=== PATIENT | female | born 1945 | race Caucasian/White ===

== ENCOUNTER → 2017-02-17 | Outpatient (CLI) | payer BC ==
[~2017-02-17] MED LIST: CALC-310 PO; CHOL100010 PO; CHOL2000 PO; CLTP PO; DENO60SO IM; FEXO1TAB49 PO; LEVO100T PO; MULT-190 PO; MULT-506 PO; MULT60CA PO; POLYSOL4 OPB; PRDFOPS; VGMOPS
--- NOTE | 2017-02-17 16:37 | MAMMOGRAPHY REPORT ---
BILATERAL DIGITAL SCREENING MAMMOGRAM WITH CAD: 02/17/2017 CLINICAL HISTORY: Routine screening examination. TECHNIQUE: Bilateral CC and MLO views were obtained. Current study was also evaluated with a Comput er Aided Detection (CAD) system. COMPARISON: Comparison is made to exams dated: 02/14/2016 mammogram, 02/13/2015 mammogram, 02/09/2013 mammogram, and 02/02/2010 mammogram - [facility]. BREAST COMPOSITION: The tissue of both breasts is extremely dense, which lowers the sensitivity of mammography. FINDINGS: There is a stable metallic biopsy marker in the 12:00 anterior left breast. Scattered sta ble benign-appearing calcifications bilaterally. Minimal vascular calcification in the breasts. No new suspicious mass, architectural distortion or cluster of microcalcifications is seen. IMPRESSION: ACR BI-RADS CATEGORY 1: NEGATIVE There is no mammographic evidence of malignancy. A 1 year screening mammogram is recommended. The p atient will receive written notification of the results. Approximately 10% of breast cancers are not detected with mammography. A negative mammographic repor t should not delay biopsy if a clinically suggestive mass is present. Dilcia Dalton M.D. ay/:02/17/2017 14:12:47 Magazine Filler: Fara ELIZABETH)(Miguel), [facility] letter sent: Normal 1/2 BI-RADS Code: ACR BI-RADS Category 1: Negative
== END | disposition home or self-care (01) ==
LOC: C.MAMM 10:51
PROVIDERS: ATTEND Family Medicine
DX: Z12.31 Encounter for screening mammogram for malignant neoplasm of breast (principal)

== ENCOUNTER → 2017-03-31 | Day surgery (SDC) | payer BC ==
[2017-03-14 11:41] VITALS: Ht 162.6 cm; Wt 54.5 kg
[~2017-03-31] VITALS: Ht 162.6 cm; Wt 54.5 kg
[~2017-03-31] MED LIST changes: +500ML BSS 0.3ML EPI 1:1000PF IRRIG ONE; +ACETAMINOPHEN 325 MG TAB PO PRN; +AMVISC PLUS 0.8ML SYRINGE INT OCU ONE; +BRIMONIDINE TART 0.2% OP SOLN PER DROP CHARGE ONE; +BSS FLUSH ONE; -CHOL100010 PO; -CLTP PO; +ENDOCOAT 0.85ML SYRINGE INT OCU ONE; +EpINEphrine INJ 1MG/ML AMP 1 MG/ML AMP ONE; -FEXO1TAB49 PO; +KETOROLAC 0.5% OP SOLN PER DROP CHARGE OPR SCH; +LACTATED RINGER'S 1000ML 500 ML IV SCH; +LIDOCAINE 4% OP SOLN DROP CHARGE ONE; +LIDOCAINE 4% OP SOLN DROP CHARGE OPR SCH; +LIDOCAINE HCL 1% MPF 2 ML VIAL ONE; +MIDAZOLAM HCL 1 MG/ML 2ML VIAL ONE; +MOXIFLOXACIN OPH SOLN PER DROP CHARGE ONE; -MULT-190 PO; +POVIDONE-IODINE OP SOLN 30 ML BTL ONE; +PROPARACAINE 0.5% OP SOLN PER DROP CHARGE OPR SCH; +TOBRAMYCIN/DEXAMETHASONE OPH OINT PER APPLN CHARGE ONE
--- NOTE | 2017-03-31 09:02 | History & Physical Bridge - SC ---
H&P Re-Evaluation Bridge Note: I have examined the patient, reviewed the History & Physical and in the interval since the performance of the History & Physical I have noted the following changes of clinical significance: No changes noted
[2017-03-31] MEDS: PHENYLEPHRINE HCL 2.5% OP SOLN PER DROP CHARGE OPR SCH ×2 (09:04→09:09)
[2017-03-31] MEDS: TROPICAMIDE 1% OP SOLN PER DROP CHARGE OPR SCH ×2 (09:05→09:10)
[2017-03-31] MEDS: CYCLOPENTOLATE HCL 1% OP SOLN PER DROP CHARGE OPR SCH ×2 (09:06→09:11)
[2017-03-31] MEDS: MOXIFLOXACIN OPH SOLN PER DROP CHARGE OPR SCH ×2 (09:08→09:23)
--- NOTE | 2017-03-31 09:59 | [facility] Post Operative Brief Note ---
Immediate Operative Summary Operative Date March 31, 2017. Pre-Operative Diagnosis Right Eye Cataract Post-Operative Diagnosis Same Procedure(s) Performed Right Cataract Phacoemulsification With Intraocular Lens Implant Surgeon Dr Frazier Regulatory Consultant Surgeon(s) None Estimated Blood Loss 0ml Findings cataract right eye Specimens None Complication(s) None Disposition Recovery Room / PACU
--- NOTE | 2017-03-31 09:59 | Discharge Instructions-SurgCtr ---
Discharge Instructions Date of Service March 31, 2017. Visit Reason for Visit: Cataract Right Eye Discharge Discharge Diagnosis / Problem: cataract right eye Discharge Goals Goal(s): Improve function Activity Recommendations Activity Limitations: per Instructions/Follow-up section Lifting Limitations: no more than 5 pounds Anesthesia . Post Anesthesia Instructions: If you have had General Anesthesia or IV Sedation: * Do not drive today. * Resume driving when surgeon permits. * Do not make important decisions or sign legal documents today. * Call surgeon for: 1. Temperature elevations greater than 101 degrees F. 2. Uncontrollable pain. 3. Excessive bleeding. 4. Persistent nausea and vomiting. 5. Medication intolerance (nausea, vomiting or rash). * For nausea and vomiting use only clear liquids such as: tea, soda, bouillon until nausea subsides, then gradually increase diet as tolerated. * If you have any concerns or questions, call your surgeon's office. If physician is unavailable and it is an emergency, call 911 or go to the nearest emergency room. . Instructions / Follow-Up Instructions / Follow-Up ACTIVITY RECOMMENDATIONS: * Light activities * You may walk outside, read, watch television. * Mild irritation and blurred vision are common for the first few days, redness around the white part of the eye is common. MEDICATIONS: Resume previous medications unless instructed otherwise by your surgeon. Eye drops (today and tomorrow): Vigamox - one drop in operative eye every 2 hours while awake Prednisolone 1% - one drop in operative eye every 2 hours while awake SPECIAL CARE INSTRUCTIONS: * If any problems or concerns, please call Dr. Frazier's office at . * Keep plastic shield taped over eye to sleep at night. * Keep plastic shield taped over eye except to administer eye drops. * Keep plastic shield on until office visit the following day. FOLLOW UP VISIT: Follow-up with Dr. Frazier in the [place] office as scheduled. If not already scheduled, please call the office at . Diet Recommendations Home Diet: resume previous diet Procedures Procedures Performed: Right Cataract Phacoemulsification With Intraocular Lens Implant Pending Studies Studies pending at discharge: no Medical Emergencies . Who to Call and When: Medical Emergencies: If at any time you feel your situation is an emergency, please call 911 immediately. . Non-Emergent Contact Non-Emergency issues call your: Color Maker Dyer . . "Provider Documentation" section prepared by Roman Frazier. .
[2017-03-31 10:00] VITALS: TEMP 36.7
--- NOTE | 2017-03-31 10:21 | Anesthesia Progress Nt - [facility] ---
Anesthesia Post Op Note Date & Time March 31, 2017 at 10:20 Vital Signs Pain Intensity: 0 Vital Signs Past 12 Hours Date Time Temp Pulse Resp B/P Pulse Ox O2 Delivery O2 Flow Rate FiO2 03/31/17 10:00 36.7 49 16 123/68 100 Room Air 03/31/17 08:54 36.5 57 16 158/65 100 Room Air Notes Mental Status: alert / awake / arousable, participated in evaluation Pt Amnestic to Procedure: No (recall as expected) Nausea / Vomiting: adequately controlled Pain: adequately controlled Airway Patency, RR, SpO2: stable & adequate BP & HR: stable & adequate Hydration State: stable & adequate Anesthetic Complications: no major complications apparent Pt doing well.
[2017-03-31 10:23] VITALS: BP 133/66; PULSE 52; O2SAT 99
--- NOTE | 2017-03-31 10:27 | OPERATIVE REPORT ---
DATE OF OPERATION: 03/31/2017 PREOPERATIVE DIAGNOSIS: Cataract, right eye. POSTOPERATIVE DIAGNOSIS: Cataract, right eye. PROCEDURE: Phacoemulsification cataract extraction with intraocular lens placement, right eye. SURGEON: Dr. Frazier. COMPLICATIONS: None. ESTIMATED BLOOD LOSS: None. ANESTHESIA: Topical with sedation. OPERATION AND FINDINGS: After informed consent was obtained in the holding area the patient was wheeled back to the Operating Room where cardiac monitoring leads and oxygen by nasal cannula was administered by Anesthesia. Gentle IV sedation was given, and the patient's right eye was prepped and draped in usual sterile fashion. A wire lid speculum was placed into the right eye and the operating microscope was swung into position. Using 0.12 forceps and a Supersharp blade a paracentesis port was made 3 o'clock hours away from the 9 o'clock position of patient's right eye. 1% non-preserved Lidocaine was then injected into the anterior chamber for anesthesia. A 2.2 mm keratotome blade was then used to make a shelved clear corneal incision at the 9 o'clock position of her right eye. Amvisc was injected into the anterior chamber and a cystotome and Utrata forceps were used to perform a curvilinear capsulorrhexis. BSS on a hydrodissection cannula was used to hydrodissect the lens nucleus away from the capsular bag. The phacoemulsification handpiece was then used in a stop and chop fashion to remove the lens nucleus. The irrigation and aspiration handpiece was then used to remove the residual cortical material. Amvisc was injected into the capsular bag and anterior chamber and a Bausch \T\ Lomb MX60 22.5 Diopter intraocular lens was injected into the capsular bag. Irrigation and aspiration handpiece was used to remove the residual viscoelastic material. The wounds were hydrated and noted to be watertight. The wire lid speculum was removed from the eye. Vigamox, Brimonidine, and TobraDex ointment were placed on the eye and it was shielded. It should be noted that EndoCoat was used during the case to protect the cornea endothelium. DISPOSITION: The patient tolerated the procedure well and was wheeled to the post anesthesia care unit in stable condition. I attest to the content of the Intraoperative Record and any orders documented therein. Any exceptions are noted below. I attest to the content of the Intraoperative Record and any orders documented therein. Any exceptions are noted below. MTDD
== END | disposition home or self-care (01) ==
LOC: X.SURG 08:18
PROVIDERS: ATTEND Ophthalmology
DX: H25.11 Age-related nuclear cataract, right eye (principal); E89.0 Postprocedural hypothyroidism; Z79.899 Other long term (current) drug therapy

== ENCOUNTER → 2017-06-11 | Outpatient (CLI) | payer BC ==
[~2017-06-11] MED LIST changes: -500ML BSS 0.3ML EPI 1:1000PF IRRIG ONE; -ACETAMINOPHEN 325 MG TAB PO PRN; -AMVISC PLUS 0.8ML SYRINGE INT OCU ONE; -BRIMONIDINE TART 0.2% OP SOLN PER DROP CHARGE ONE; -BSS FLUSH ONE; -ENDOCOAT 0.85ML SYRINGE INT OCU ONE; -EpINEphrine INJ 1MG/ML AMP 1 MG/ML AMP ONE; -KETOROLAC 0.5% OP SOLN PER DROP CHARGE OPR SCH; -LACTATED RINGER'S 1000ML 500 ML IV SCH; -LIDOCAINE 4% OP SOLN DROP CHARGE ONE; -LIDOCAINE 4% OP SOLN DROP CHARGE OPR SCH; -LIDOCAINE HCL 1% MPF 2 ML VIAL ONE; -MIDAZOLAM HCL 1 MG/ML 2ML VIAL ONE; -MOXIFLOXACIN OPH SOLN PER DROP CHARGE ONE; -POVIDONE-IODINE OP SOLN 30 ML BTL ONE; -PROPARACAINE 0.5% OP SOLN PER DROP CHARGE OPR SCH; -TOBRAMYCIN/DEXAMETHASONE OPH OINT PER APPLN CHARGE ONE
[2017-06-11 15:26] LABS: THYROID STIMULATING HORMONE 0.437 uIu/ml (0.300-4.500)
== END | disposition home or self-care (01) ==
LOC: C.LAB 14:05
PROVIDERS: ATTEND Internal Medicine Endocrinology, Diabetes & Metabolism
DX: E89.0 Postprocedural hypothyroidism (principal); M81.0 Age-related osteoporosis without current pathological fracture; E55.9 Vitamin D deficiency, unspecified; Z92.3 Personal history of irradiation

== ENCOUNTER → 2017-12-18 | Outpatient (CLI) | payer BC ==
[2017-12-18 15:03] LABS: BLOOD UREA NITROGEN 22 mg/dl (7-18); CALCIUM 9.4 mg/dl (8.5-10.1); CARBON DIOXIDE 28 mmol/L (21-32); CREATININE 0.64 mg/dl (0.60-1.20); GLUCOSE 91 mg/dl (70-99); POTASSIUM 4.1 mmol/L (3.5-5.1); SODIUM 139 mmol/L (136-145)
== END | disposition home or self-care (01) ==
LOC: C.LAB 13:17
PROVIDERS: ATTEND Internal Medicine Endocrinology, Diabetes & Metabolism
DX: C73 Malignant neoplasm of thyroid gland (principal)

== ENCOUNTER 2018-02-01 10:24 | Emergency (ER) | payer BC ==
[~2018-02-01] VITALS: Ht 162.6 cm; Wt 54.9 kg
[2018-02-01 10:29] VITALS: Ht 162.6 cm; Wt 54.9 kg
[2018-02-01] MEDS ORDERED: ACETAMINOPHEN 500 MG TAB PO STA (10:40)
--- NOTE | 2018-02-01 10:46 | EMERGENCY ROOM VISIT NOTE ---
History Report prepared by Jonelle: Wojciech Luz Under the Supervision of: Dr. Jhonatan Cunningham D.O. First contact with patient: 10:34 Chief Complaint: FLU LIKE SX Stated Complaint: COLD, COUGH, DIZZY, BODY ACHES History of Present Illness The patient is a 72 year old female who presents to the Emergency Room with complaints of worsening flu like symptoms for the past two days. The patient states that she has a sore throat, runny nose, nausea, body aches, and a cough that is brining up phlegm. She is unsure if she has a fever. She denies any chest pain, leg pain, leg swelling, and vomiting. The patient states that she took Tylenol yesterday. The patient has a history of thyroid cancer, a thyroidectomy, and osteoporosis. She denies any history of diabetes or hypertension. She did not get the flu shot this year. Source of History: patient Onset: two days ago Position: other (global) Quality: other (flu like symptoms) Timing: worsening Associated Symptoms: + sorethroat, + cough, + nausea Note: Associated symptoms: runny nose and body aches. Review of Systems See HPI for pertinent positives & negatives. A total of 10 systems reviewed and were otherwise negative. Past Medical & Surgical Medical Problems: (1) Osteoporosis (2) Thyroid cancer Surgical Problems: (1) H/O thyroidectomy Social History Smoking Status: Former Smoker Alcohol Use: none Occupation Status: unemployed Current/Historical Medications Scheduled Calcium Citrate-Vitamin D (Calcium Citrate + D), 1 TAB PO BID Cholecalciferol (Vitamin D3), 2,000 UNITS PO QAM Denosumab (Prolia), 1 DOSE IM [id number] Levothyroxine Sodium (Synthroid), 100 MCG PO QAM Multiple Vitamins W/ Minerals (Preservision Areds 2), 1 CAP PO BID Multivitamin (Multivitamin), 1 TAB PO QAM Polyethylene Glycol-Propylene (Systane), 1 DROPS OPB BID Allergies Coded Allergies: Celecoxib (Verified Allergy, Intermediate, HIVES RASH, 02/01/18) Grass (Verified Allergy, Mild, HAYFEVER SYMPTOMS, 02/01/18) Shellfish (Verified Allergy, Unknown, TESTED POSITIVE FROM ALLERGY TEST, ) Uncoded Allergies: NARCOTICS (Adverse Reaction, Unknown, GI UPSET, 03/14/17) Physical Exam Vital Signs Date Time Temp Pulse Resp B/P (MAP) Pulse Ox O2 Delivery O2 Flow Rate FiO2 02/01/18 11:39 37.8 69 18 124/53 94 Room Air 02/01/18 10:29 37.8 82 18 155/68 97 Room Air Physical Exam GENERAL: Patient is awake, alert, and in no acute distress. Patient is resting comfortably and showing no signs of anxiety EYES: The conjunctivae are clear. The pupils are round and reactive. EARS, NOSE, MOUTH AND THROAT: . Mucous membranes are moist. There is a thin clear rhinorrhea noted bilaterally. NECK: The neck is nontender and supple. RESPIRATORY: Normal respiratory effort is noted there is no evidence of wheezing rhonchi or rales CARDIOVASCULAR: Regular rate and rhythm noted there no murmurs rubs or gallops normal S1 normal S2 GASTROINTESTINAL: The abdomen is soft. Bowel sounds are present in all quadrants. Abdomen is nontender MUSCULOSKELETAL/EXTREMITIES: There is no evidence of gross deformity full range of motion is noted in the hips and shoulders SKIN: There is no obvious evidence of any rash. There are no petechiae, pallor or cyanosis noted. NEUROLOGIC: Patient is awake alert and oriented x3 Medical Decision & Procedures ER Provider Diagnostic Interpretation: Radiology results as stated below per my review and radiologist interpretation: TWO VIEW CHEST CLINICAL HISTORY: Cough. FINDINGS: PA and lateral chest radiographs are correlated with chest CT dated 11/04/2006. The PA view is degraded by patient rotation. The cardiomediastinal silhouette is unremarkable. There is atherosclerotic calcification of the thoracic aorta. Chronic interstitial thickening is similar to previous. No airspace consolidation or pleural effusion is identified. There is no pneumothorax. The skeletal structures are osteopenic. Mild compression deformities are noted in the thoracic spine. There are healed right-sided rib fractures. IMPRESSION: No active disease in the chest Electronically signed by: Juliano Dawson M.D. 02/01/2018 11:27 AM Dictated Date/Time: 02/01/2018 11:25 AM Laboratory Results Test 02/01/18 10:55 Influenza Type A Antigen Neg for Influ A (NEG) Influenza Type B Antigen Neg for Influ B (NEG) Laboratory results per my review. Medications Administered Medications (Trade) Dose Ordered Sig/Cricket Route Start Time Stop Time Status Last Admin Dose Admin Acetaminophen (Tylenol Tab) 1,000 mg NOW STAT PO 02/01/18 10:40 02/01/18 10:41 DC 02/01/18 10:48 1,000 MG ED Course 1034: The patient was evaluated in room C4. A complete history and physical examination were performed. 1040: Tylenol 1000mg PO 1135: Upon reevaluation, the patient is doing well. I discussed the results and treatment plan with her. She verbalized agreement of the treatment plan. She was discharged home. Medical Decision Differential diagnosis: Etiologies such as viral syndrome, otitis, pharyngitis, pneumonia, influenza, meningitis, urinary tract infection, sepsis, bacteremia, as well as others were entertained. Nursing notes reviewed. The patient is a 72-year-old female who presented to the emergency department for an evaluation of flulike symptoms. The patient complains of cough and low- grade fever. She also has rhinorrhea. Overall her condition does appear to be consistent with the flu however her swab was negative. Chest x-ray revealed no acute disease and her exam does not appear to be consistent with bronchitis. I explained to her that this likely represents a viral upper respiratory tract infection as well as possibly the flu. I discussed the limitations of the flu swab with her. She has had symptoms for greater than 48 hours I do not feel there would be any specific treatment for the flu. She was encouraged to continue using [id number] medications and follow-up with her primary care physician as soon as possible. Otherwise I encouraged her to return to the emergency department immediately if symptoms change worsen or the need arises. Medication Reconcilliation Current Medication List: was personally reviewed by me Blood Pressure Screening Patient's blood pressure: Elevated blood pressure Blood pressure disposition: Elevated BP felt to be situational Impression Primary Impression: Upper respiratory tract infection Scribe Attestation The scribe's documentation has been prepared under my direction and personally reviewed by me in its entirety. I confirm that the note above accurately reflects all work, treatment, procedures, and medical decision making performed by me. Departure Information Dispostion Home / Self-Care Referrals Leigh Brito PA-C (PCP) Forms HOME CARE DOCUMENTATION FORM, IMPORTANT VISIT INFORMATION Patient Instructions ED URI Viral, [facility] Additional Instructions Continue using Tylenol as directed for pain and body aches. Drink plenty of clear liquids. Call your family doctor to schedule a follow-up appointment. Return to the emergency department immediately if symptoms change worsen or the need arises. Problem Qualifiers Primary Impression: Upper respiratory tract infection URI type: unspecified URI Qualified Codes: J06.9 - Acute upper respiratory infection, unspecified
[2018-02-01 11:21] LABS: INFLUENZA B ANTIGEN Neg for Influ B (NEG)
--- NOTE | 2018-02-01 11:28 | DIAGNOSTIC IMAGING REPORT ---
TWO VIEW CHEST CLINICAL HISTORY: Cough. FINDINGS: PA and lateral chest radiographs are correlated with chest CT dated 11/04/2006. The PA view is degraded by patient rotation. The cardiomediastinal silhouette is unremarkable. There is atherosclerotic calcification of the thoracic aorta. Chronic interstitial thickening is similar to previous. No airspace consolidation or pleural effusion is identified. There is no pneumothorax. The skeletal structures are osteopenic. Mild compression deformities are noted in the thoracic spine. There are healed right-sided rib fractures. IMPRESSION: No active disease in the chest. Electronically signed by: Juliano Dawson M.D. 02/01/2018 11:27 AM Dictated Date/Time: 02/01/2018 11:25 AM
[2018-02-01 11:39] VITALS: BP 124/53; PULSE 69; TEMP 37.8; O2SAT 94
== END 2018-02-01 11:41 | disposition home or self-care (01) ==
LOC: C.EDB 10:26 → C.EDC 11:41
DX: J06.9 Acute upper respiratory infection, unspecified (principal); Z85.850 Personal history of malignant neoplasm of thyroid; M81.0 Age-related osteoporosis without current pathological fracture; Z87.891 Personal history of nicotine dependence; Z79.899 Other long term (current) drug therapy; Z91.048 Other nonmedicinal substance allergy status; Z91.013 Allergy to seafood; Z88.5 Allergy status to narcotic agent; Z88.8 Allergy status to other drugs, medicaments and biological substances

== ENCOUNTER → 2018-02-18 | Outpatient (CLI) | payer BC ==
[~2018-02-18] MED LIST changes: -PRDFOPS; -VGMOPS
--- NOTE | 2018-02-18 14:12 | DIAGNOSTIC IMAGING REPORT ---
CHEST 2 VIEWS ROUTINE CLINICAL HISTORY: SOB, FATIGUE NONPRODUCTIVE COUGH COMPARISON STUDY: February 01, 2018 FINDINGS: The cardiac and mediastinal contours remain stable. There is no failure. There is no focal pulmonary consolidation. There are no pleural effusions. There are old right-sided rib fractures.[ IMPRESSION: No active disease in the chest. Electronically signed by: Domenic Rosales M.D. 02/18/2018 2:11 PM Dictated Date/Time: 02/18/2018 2:10 PM
== END | disposition home or self-care (01) ==
LOC: C.RAD 13:36
PROVIDERS: ATTEND Physician Assistant
DX: R06.02 Shortness of breath (principal); R53.83 Other fatigue

== ENCOUNTER → 2018-02-24 | Outpatient (CLI) | payer BC | END | disposition home or self-care (01) | LOC: C.MAMM 12:12 | PROVIDERS: ATTEND Internal Medicine Endocrinology, Diabetes & Metabolism | DX: M81.0 Age-related osteoporosis without current pathological fracture (principal); M85.89 Other specified disorders of bone density and structure, multiple sites ==

== ENCOUNTER → 2018-02-24 | Outpatient (CLI) | payer BC ==
--- NOTE | 2018-02-26 07:47 | MAMMOGRAPHY REPORT ---
BILATERAL DIGITAL SCREENING MAMMOGRAM TOMOSYNTHESIS WITH CAD: 02/24/2018 CLINICAL HISTORY: Routine screening. Patient has no complaints. TECHNIQUE: Breast tomosynthesis in addition to standard 2D mammography was performed. Current study was also evaluated with a Computer Aided Detection (CAD) system. COMPARISON: Comparison is made to exams dated: 02/17/2017 mammogram, 02/14/2016 mammogram, 02/13/2015 m ammogram, 02/10/2014 mammogram, 02/09/2013 mammogram, and 02/05/2012 mammogram - [facility]. BREAST COMPOSITION: The tissue of both breasts is extremely dense, which lowers the sensitivity of m ammography. FINDINGS: There is a 7 mm nodular asymmetry and possible architectural distortion in the lateral, mi ddle one third of the right breast, best seen on the CC view. Additional spot compression tomosynthe sis views and possible ultrasound are recommended. There are stable benign rim calcifications in the lateral right breast, and a stable metallic biopsy marker clip in the 12:00 left breast. No other suspicious mass, architectural distortion or cluster o f microcalcifications is seen. IMPRESSION: ACR BI-RADS CATEGORY 0: INCOMPLETE EVALUATION: NEED ADDITIONAL IMAGING EVALUATION The 7 mm nodular asymmetry and possible architectural distortion in the lateral right breast need add itional evaluation. The patient will be called to schedule an appointment. Approximately 10% of breast cancers are not detected with mammography. A negative mammographic report should not delay biopsy if a clinically suggestive mass is present. Dilcia Dalton M.D. ay/:02/24/2018 15:41:16 Clean Up Person: Fara ELIZABETH)(Miguel), [facility] letter sent: Addl Imaging 0 BI-RADS Code: ACR BI-RADS Category 0: Incomplete Evaluation: Need Additional Imaging Evaluation
== END | disposition home or self-care (01) ==
LOC: C.MAMM 12:11
PROVIDERS: ATTEND Family Medicine
DX: Z12.31 Encounter for screening mammogram for malignant neoplasm of breast (principal); N64.89 Other specified disorders of breast; R92.8 Other abnormal and inconclusive findings on diagnostic imaging of breast

== ENCOUNTER → 2018-03-06 | Outpatient (CLI) | payer BC ==
--- NOTE | 2018-03-06 15:39 | MAMMOGRAPHY REPORT ---
UNILATERAL RIGHT DIGITAL DIAGNOSTIC MAMMOGRAM TOMOSYNTHESIS AND TARGETED RIGHT ULTRASOUND: 03/06/2018 CLINICAL HISTORY: Callback from screening mammogram for right breast asymmetry and possible sql architect ural distortion. TECHNIQUE: Breast tomosynthesis in addition to standard 2D mammography was performed. Spot compress ion right CC and MLO 2D and tomosynthesis images were obtained. COMPARISON: Comparison is made to exams dated: 02/24/2018 mammogram, 02/17/2017 mammogram, 02/14/2016 m ammogram, 02/13/2015 mammogram, 02/10/2014 mammogram, and 02/09/2013 mammogram - [facility] enter. BREAST COMPOSITION: The tissue of the right breast is extremely dense, which lowers the sensitivity of mammography. FINDINGS: Spot compression views demonstrate a small focal area of persistent architectural distortio n within the right lateral breast, only well seen on the cc tomosynthesis images (slice 6/40). The a yin is ill-defined and therefore difficult to measure but measures approximately 11 x 8 mm. No clear associated mass is seen on the additional views. Targeted ultrasound was performed of the right lateral breast in the region of the persistent archite ctural distortion. No clear sonographic correlate for the distortion is seen. Incidentally noted in the right 9:00 breast, 7 cm from the nipple, is an oval hypoechoic circumscribed 6 x 3 x 4 mm mass. A coarse echogenic focus is seen within the mass, which corresponds with a coarse popcorn calcificat ion seen mammographically. 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 IMPRESSION: ACR BI-RADS CATEGORY 4: SUSPICIOUS, TARGETED ULTRASOUND ACR BI-RADS CATEGORY 4: SUSPICIO US Persistent area of probable architectural distortion within the right lateral breast seen on one view only, without a clear sonographic correlate evident. The finding is indeterminate and tomosynthesis guided stereotactic biopsy is recommended for further evaluation. A phone call was made to the physician's office to confirm faxed results were received. The patient has been verbally notified of the results. She tentatively scheduled the biopsy before leaving the [facility]. Approximately 10% of breast cancers are not detected with mammography. A negative mammographic report should not delay biopsy if a clinically suggestive mass is present. Laure Gutiérrez M.D. /:03/06/2018 12:02:55 Shot Polisher: Tita ELIZABETH)(Miguel), [facility] letter sent: Abnormal 4/5 BI-RADS Code: ACR BI-RADS Category 4: Suspicious Ultrasound BI-RADS: ACR BI-RADS Category 4: Suspici ous
== END | disposition home or self-care (01) ==
LOC: C.MAMM 08:28
PROVIDERS: ATTEND Physician Assistant
DX: N64.9 Disorder of breast, unspecified (principal)

== ENCOUNTER → 2018-03-27 | Outpatient (CLI) | payer BC ==
[~2018-03-27] MED LIST changes: +GADAVIST IV PRN
--- NOTE | 2018-03-30 07:47 | MAMMOGRAPHY REPORT ---
BREAST MRI OF BOTH BREASTS : 03/27/2018 CLINICAL HISTORY: The patient had a recent diagnostic workup for architectural distortion seen within the right lateral breast. Stereotactic biopsy was recommended, however, it was canceled as a faint scar was seen on the skin at the site of the distortion, suggesting that this likely represents posts urgical changes. A breast MRI was recommended to exclude a possible mass or other suspicious finding . Review of the records shows a history of a benign ultrasound-guided biopsy of a left 12:00 breast mass in 2008 which yielded benign fibrocystic change. She also underwent a needle localized surgical excision in the right 9:00 breast in 2002 which also yielded benign pathology. The patient also rep orts prior right breast surgery 40 years ago. COMPARISON: Comparison is made to exams dated: 03/06/2018 ultrasound, 02/24/2018 mammogram, 02/17/2017 m ammogram, 02/14/2016 mammogram, 02/13/2015 mammogram, and 02/10/2014 mammogram - [facility]. Technique: The patient was placed prone in a dedicated breast imaging coil. Precontrast axial T1-mao ghted, axial T2-weighted fat saturation, and axial T1-weighted fat saturation images were obtained. After the administration of 5.5 mL of Gadavist IV contrast, sequential T1-weighted fat saturation raine ges were obtained. Subtraction images were obtained of the dynamic contrast enhanced sequences, and 3-D reformations were performed. The [employer] software was used for kinetic analysis. Findings: Right breast: There is mild background parenchymal enhancement. There is an oval circumscribed enhan cing 5 mm mass seen within the right lateral breast at approximately 8:00, with a small focus of non- enhancement seen centrally within the mass (series 501 image 88). 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 The remainder of the right breast demonstrates no suspicious masses or areas of abnormal non-mass enhancement. Specifically, no abnormal enhancement is seen in the righ t lateral breast at the site of the mammographic architectural distortion; given the lack of correspo nding MRI abnormality and given that the patient has a history of a surgical excision in the right 9: 00 breast, the finding is benign and felt to represent postsurgical distortion. Left breast: There is mild background parenchymal enhancement. In the left 11 to 12:[address], there is a round 9 mm mass which is predominantly T1 hyperintense and has multiple thin hypointen se internal septations which demonstrate minimal enhancement (series 501 image 62). Clip artifact is seen immediately adjacent to the mass. This mass was previously biopsied in 2008 and was found to r epresent benign fibrocystic change. In the left upper inner quadrant middle depth superior and later al to the biopsied mass, there is an enhancing circumscribed 6 mm mass which has a possible thin none nhancing internal septation and demonstrates a persistent kinetic pattern (series 501 image 58). Thi s may represent a fibroadenoma or fibrocystic changes, however, recommend second look ultrasound give n that it is newly visualized on imaging. A small 3 mm focus of enhancement is also seen within the left lower outer quadrant middle depth, which demonstrates a persistent and plateau kinetic pattern; this may represent normal background enhancement although second look ultrasound is also recommended (series 501 image 88). There is no evidence of axillary adenopathy. The chest wall structures are negative. Extramammary s oft tissues are unremarkable. IMPRESSION: ACR BI-RADS CATEGORY 0: INCOMPLETE EVALUATION: NEED ADDITIONAL IMAGING EVALUATION 1. No MRI evidence of malignancy in the right breast. Specifically, no abnormal enhancement is seen at the site of the mammographic architectural distortion; given the lack of corresponding MRI abnorm ality and given the history of a surgical excision in this region, the finding is benign and felt to represent postsurgical distortion. 2. Enhancing circumscribed 6 mm mass with associated persistent kinetics in the left upper inner alf drant. While this may represent a fibroadenoma or fibrocystic changes, second look ultrasound is rec ommended for further evaluation given that it is newly visualized on imaging. At that time, second l ook ultrasound can also be performed of a small 3 mm focus of enhancement in the left lower outer alf drant. If a corresponding suspicious abnormality is seen on ultrasound, ultrasound-guided biopsy cou ld be performed at that time (45 minute-1 hour time slot). Laure Gutiérrez M.D. /:03/28/2018 10:25:25 Band Manager: adjunct instructor in economics, [employer] letter sent: [facility] Imaging 0 BI-RADS Code: ACR BI-RADS Category 0: Incomplete Evaluation: Need Additional Imaging Evaluation
== END | disposition home or self-care (01) ==
LOC: C.MRI 11:27
PROVIDERS: ATTEND Physician Assistant
DX: N63.22 Unspecified lump in the left breast, upper inner quadrant (principal); N63.23 Unspecified lump in the left breast, lower outer quadrant

== ENCOUNTER → 2018-04-13 | Outpatient (CLI) | payer BC ==
[~2018-04-13] MED LIST changes: -GADAVIST IV PRN
--- NOTE | 2018-04-13 11:11 | Discharge Instructions ---
Discharge Instructions Procedure Procedure Date: April 13, 2018. Reason for visit: Second Look Ultr W/Poss Core Bx L Mass/Focal Enha. Discharge Discharge Date: April 13, 2018. Discharge Diagnosis: post left breast ultrasound guided core biopsy x 2 Instructions Activity Recommendations: Additional Limitations (see below) Return to School/Work: no limitations Recommended Home Diet: No Limitations Provider Instructions: ACTIVITY RECOMMENDATIONS: * No lifting, pushing, pulling or exercising the affected side for three days. RETURN TO SCHOOL/WORK: * You may return to work/school after the procedure, but do not perform any strenuous activities for 24 to 48 hours. MEDICATIONS: * Tylenol (two 325 mg) every four to six hours if needed for mild pain (if not allergic to Tylenol). DIET: * Resume previous diet. SPECIAL CARE INSTRUCTIONS: * Keep biopsy site dry for 24 hours. May shower after 24 hours, but do not soak (bathe) incision. * May remove Tegaderm (plastic patch) tomorrow AFTER showering. * Leave the steri-strips on for one week. Allow the steri-strips to fall off by themselves. If not off after one week, you may remove them. You may place a Bandaid crosswise over the strips, if desired. * Apply ice 10 minutes on and 10 minutes off as needed. * Wear a bra at bedtime to sleep more comfortably for 2-3 days. * Your referring physician should have the results after approximately 5 to 7 business days. * Call for unusual bleeding, fever, drainage, etc or if you have any questions call [phone] during normal business hours or after hours call Dr Dalton, . FOLLOW UP VISIT: Follow-up with Referring Physician as scheduled. Allergies Coded Allergies: Celecoxib (Verified Allergy, Intermediate, HIVES RASH, 02/01/18) Grass (Verified Allergy, Mild, HAYFEVER SYMPTOMS, 02/01/18) Shellfish (Verified Allergy, Unknown, TESTED POSITIVE FROM ALLERGY TEST, ) Uncoded Allergies: NARCOTICS (Adverse Reaction, Unknown, GI UPSET, 03/14/17) Jerardo Solano Recommendations: Call your doctor if: * Temperature above 101 degrees * Pain not relieved by pain medicine ordered * There is increased drainage or redness from any incision * You have any unanswered questions or concerns. Your Doctors Instructions noted above were prepared by provider Dilcia Dalton. Patient Signature Section: Patient Instructions Signature Page Charlotte Vargas Patient (or Guardian) Signature/Date: I have read and understand the instructions given to me by my caregivers. Caregiver/RN/Doctor Signature/Date: The above-named patient and/or guardian has received patient instructions on this date. + Original Patient Signature Page (only) stays with chart. Please make copy for patient.
--- NOTE | 2018-04-13 15:23 | MAMMOGRAPHY REPORT ---
MULTIPLE ULTRASOUND GUIDED BIOPSIES LEFT BREAST: 04/13/2018 CLINICAL HISTORY: 72-year-old woman presents for additional targeted ultrasound and possible ultrasou nd-guided core biopsies in the left breast for a 6 mm enhancing mass in the upper inner quadrant of t he left breast, and 3 mm enhancing focus in the lower outer left breast. COMPARISON: Comparison is made to exams dated: 03/27/2018 breast MRI, 02/24/2018 mammogram, 02/17/2017 mammogram, 02/14/2016 mammogram, 02/13/2015 mammogram, and 02/10/2014 mammogram - [facility]. PATIENT CONSENT: The procedure, risks and benefits were discussed with the patient and informed conse nt was obtained both verbally and in writing. Specific risks to this procedure include: bleeding, in fection, puncture of adjacent structure, nontarget biopsy, sampling error, pain, metal allergy and me dication reaction. PROCEDURE DESCRIPTION: Targeted left breast ultrasound performed prior to biopsies demonstrate a 7 mm mass in the 11:00 left breast and a 4 mm mass in the 3:00 left breast. These are the intended targe ts for ultrasound-guided core biopsy. A time out was performed and the left breast was agreed as the site for both biopsies. The skin of t he left breast was prepped and draped in the usual sterile fashion. First, the lobulated and somewha t irregular 7 mm mass in the 11:00 left breast breast was chosen as the target for biopsy. Subcutaneo us and intraparenchymal 1% buffered lidocaine, with and without epinephrine, was administered as loca l anesthesia. A skin incision was made. Through the incision, 4 samples were taken with a 14 gauge A [employer] biopsy device. A wing shaped metallic marker was placed at the biopsy site. Hemostasis was ach ieved after manual compression. The patient tolerated the procedure well and there was no immediate c omplication. Second, the smaller 4 mm oval solid mass in the 3:00 left breast was identified and targeted for biop sy. Additional subcutaneous and intraparenchymal 1% buffered lidocaine with and without epinephrine was administered. A second skin incision was made. Through this incision, 4 samples were obtained w ith a 14-gauge achieve biopsy device. A coiled metallic biopsy marker clip was placed at the site of biopsy. All of the samples were sent to the pathology department in appropriately labeled container s. Postprocedure left CC and ML 2D and tomosynthesis images were obtained. There are 2 new biopsy marke r clips within the left breast at 11:00 and 3:00. A ribbon-shaped clip is present in the 12:00 axis from prior remote benign biopsy. No significant postbiopsy hematoma identified. IMPRESSION: ULTRASOUND GUIDED BIOPSY Status post ultrasound-guided core biopsy of indeterminate solid appearing masses in the 11:00 and 3: 00 axes of the left breast, thought to correlate with enhancing mass/foci seen on recent MRI. Pending benign pathology results, a follow-up breast MRI in 6 months is recommended to demonstrate st ability. The patient will receive notification of the biopsy results from her referring physician. Dilcia Dalton M.D. ay/:04/13/2018 14:59:27 Residential Team Leader: Megan Yan, [facility]
--- NOTE | 2018-04-13 15:23 | MAMMOGRAPHY REPORT ---
ULTRASOUND GUIDED BIOPSY: 04/13/2018 CLINICAL HISTORY: Indeterminate isoechoic solid-appearing subcentimeter masses in the 11:00 and 3:00 axes of the left breast. Patient presents for left breast ultrasound-guided core biopsy 2. Please refer to the report from left breast ultrasound-guided core biopsy performed at the same time for full detail. IMPRESSION: ULTRASOUND GUIDED BIOPSY Please refer to the report from left breast ultrasound-guided core biopsy performed at the same time for full detail. Dilcia Dalton M.D. ay/:04/13/2018 11:19:43 Lens Edge Grinder Machine: Megan Yan, [facility]
--- NOTE | 2018-04-13 15:26 | MAMMOGRAPHY REPORT ---
UNILATERAL LEFT DIGITAL DIAGNOSTIC MAMMOGRAM TOMOSYNTHESIS: 04/13/2018 CLINICAL HISTORY: Indeterminate isoechoic solid-appearing subcentimeter masses in the 11:00 and 3:00 axes of the left breast. Patient presents for left breast ultrasound-guided core biopsy 2. Please refer to the report from left breast ultrasound-guided core biopsy performed at the same time for full detail. IMPRESSION: POST PROCEDURE IMAGING FOR MARKER PLACEMENT Please refer to the report from left breast ultrasound-guided core biopsy performed at the same time for full detail. Approximately 10% of breast cancers are not detected with mammography. A negative mammographic report should not delay biopsy if a clinically suggestive mass is present. Dilcia Dalton M.D. ay/:04/13/2018 11:20:23 Digital Media Analyst: Megan Yan, [facility] BI-RADS Code: Post Procedure Imaging For Marker Placement
== END | disposition home or self-care (01) ==
LOC: C.MAMM 10:07
PROVIDERS: ATTEND Physician Assistant
DX: N63.20 Unspecified lump in the left breast, unspecified quadrant (principal); R92.0 Mammographic microcalcification found on diagnostic imaging of breast

== ENCOUNTER → 2018-04-23 | Outpatient (CLI) | payer BC ==
--- NOTE | 2018-04-23 14:31 | DIAGNOSTIC IMAGING REPORT ---
CT LUNG SCREENING, LOW DOSE WITH COMPUTER-AIDED DETECTION (CAD) CLINICAL HISTORY: Significant smoking history. Screening for lung cancer. COMPARISON STUDY: Chest radiograph February 18, [address] November 04, 2006. CT DOSE: 99.81 mGy.cm TECHNIQUE: Low-dose helical CT was acquired without intravenous contrast from lung apices to bases and reconstructed at 2.5 mm every 2 mm. CAD was utilized for this study. A dose lowering technique was utilized adhering to the principles of ALARA. FINDINGS: The thyroid gland is surgically absent. Note is made of a 2.7 x 1.8 cm hypodense upper mediastinal abnormality shown on image 53 of 322. No enlarged hilar or axillary lymph nodes are present. The heart is mildly enlarged. There is no pericardial effusion. There is moderate coronary artery calcification. An irregular subpleural opacity within the superior segment of the right lower lobe shown on image 158 of 322 favors scarring/atelectasis. A few nodular components measure up to 1.2 cm. There are numerous upper lobe predominant groundglass opacities which are new since CT of November 04, 2006 and include a 9 mm left upper lobe groundglass opacity shown image 113 and a 1 cm right upper lobe groundglass opacity shown image 75 of 322. Numerous smaller ground glass opacities are noted. Several subpleural nodules are unchanged since CT of November 04, 2016 and are therefore benign. A 3 mm left lower lobe nodule shown image 231 of 322 is new. A 4 mm right middle lobe nodule shown image 181 is also new. Central airways are patent. No pneumothorax or pleural effusion is noted. No suspicious osseous lesions are present. Upper abdomen is unremarkable on this unenhanced exam. Old right rib fractures are noted as well as old right clavicular fracture. IMPRESSION: 1. Numerous small upper lobe predominant groundglass opacities which measure up to 1 cm. These may be infectious or inflammatory. However, multifocal low-grade neoplasms could appear similar. A follow-up contrast-enhanced diagnostic chest CT in 3 months is recommended to ensure resolution. Lung RADS 4A. 2. 2.7 x 1.8 cm hypodense left upper mediastinal abnormality. This is indeterminate given the patient's history of thyroid cancer. A benign etiology is favored and this may reflect residual thyroid parenchyma/nodule. A necrotic node could appear similar although is considered less likely. This can be assessed on follow-up contrast-enhanced chest CT. 3. Subpleural irregular right lower lobe opacity which favors scarring/atelectasis but should be assessed on follow-up chest CT. 4. A few small solid nodules, measuring up to 4 mm, which are indeterminate although likely benign and can be assessed on subsequent exam. CAD FINDINGS: Overall Lung RADS Category: 4A. Recommend contrast-enhanced diagnostic chest CT in 3 months on July 24, 2018. Electronically signed by: Yoshi Denson M.D. 04/23/2018 2:29 PM Dictated Date/Time: 04/23/2018 1:59 PM
== END | disposition home or self-care (01) ==
LOC: C.CTS 13:40
PROVIDERS: ATTEND Physician Assistant
DX: Z87.891 Personal history of nicotine dependence (principal); Z12.2 Encounter for screening for malignant neoplasm of respiratory organs; R91.1 Solitary pulmonary nodule; R91.8 Other nonspecific abnormal finding of lung field